=== PATIENT | male | born 1980 | race African-American/Black ===

== ENCOUNTER 2016-04-14 13:53 | Emergency (ER) | payer MEDICAID ==
--- NOTE | 2016-04-14 14:23 | ED Physician Chart ---
Chief Complaint/HPI - Patient Information Date Seen:: 04/15/16 Time Seen:: 14:20 Chief Complaint:: ABD PAIN SINCE 0830 HRS History of Present Illness:: 35-year-old male presents with onset of mid to lower abdominal pain that started at 830 this morning. The onset was relatively acute and accompanied by nausea without any vomiting or diarrhea. Patient rated the severity of the pain is a 7/10 when it was at its worst and described it as sharp and crampy. The patient localizes the pain to just below the umbilicus was some radiation deeper into the abdomen and towards the back. The pain is aggravated by movements and walking and made better by laying still. Patient has no prior similar episodes of abdominal pain. Patient has had no surgical interventions involving the abdomen or G.I. system. Allergies:: Allergies Allergy/AdvReac Type Severity Reaction Status Date / Time No Known Allergies Allergy Verified 04/14/16 14:08 Vitals:: Vital Signs - 8 hr 04/14/16 14:09 Temp 97.8 F HR 66 RR 16 BP 140/89 O2 Sat % 98 Review of Systems - Review of Systems General/Constitutional: No fever, No chills, No weight loss, No weakness, No diaphoresis, No edema, Loss of appetite Skin: No skin lesions, No rash, No bruising Head: No headache, No light-headedness Eyes: No loss of vision, No diplopia ENT: No earache, No nasal drainage, No sore throat Neck: No neck pain, No swelling, No thyromegaly, No stiffness Cardio Vascular: No chest pain, No palpitations, No edema Pulmonary: No SOB, No cough, No sputum, No wheezing GI: Nausea, No vomiting, No diarrhea, Pain, No constipation, No hematemesis G/U: No dysuria, No frequency, No hematuria, No nacturia Musculoskeletal: Bone or joint pain, No back pain, No muscle pain Psychiatric: No prior psych history, No depression, No suicidal ideation Hematopoietic: No bruising, No lymphadenopathy Allergic/Immuno: No urticaria, No angioedema Neurological: No syncope, No focal symptoms, No weakness, No paresthesia, No headache, No seizure, No dizziness, No confusion, No vertigo Past Medical History - Past Medical History Past Medical History: No significant medical hx Family History: None Social History: Non Smoker (Social use of alcohol.), No Drug Use ( Or patient was accompanied by his fiance.) Surgical History: None Psychiatricy History: None ( is the person it was sort) Family Medical History - Family Member Daughter History Unknown: Yes Other Medical History: pt doesnt have a daughter Physical Exam - Physical Examination General/Constitutional: Well-developed, well-nourished, Alert, GCS 15, Non- toxic appearing, Ambulatory Other Gen/Cons comments:: mild to moderate distress from the complained of the [place] pain. Head: Atraumatic Eyes: Lids, conjuctiva normal, PERRL, EOMI Other Eyes comments:: No jaundice of the sclera. Skin: No skin lesions, No ecchymosis, Well hydrated, No lymphadenopathy ENMT: External ears, nose nl, Nasal exam nl, Lips, teeth, gums nl, Oropharynx nl , Tonsils nl Neck: Nontender, No JVD, No nuchal rigidity, No mass Respiratory: Nl effort/Exclusion, Clear to Auscultation, No Wheeze/Rhonchi/Rales Cardio Vascular: RRR, No murmur, gallop, rubs, NL S1 S2 Other Cardio Vascular comments:: good pulses in all four extremities. Other GI comments:: The abdomen is flat and nondistended. No surgical scars are present. Bowel sounds are normal throughout the abdomen. On palpation there was mild tenderness in both the suprapubic and the right lower quadrant regions. The patient had tenderness to percussion in the right lower quadrant. Assistant Brand Manager sign was negative but the psoasis sign was clearly positive. no hernias present. : No CVA tenderness, NL external genitalia, No discharge Other comments:: no testicular tenderness or masses. No urethral discharge. Extremities: No tenderness or effusion, Full ROM, normal strength in all extremities, No edema Neuro/Psych: Alert/oriented, DTR's symmetric, Normal sensory exam, Normal motor strength, Judgement/insight normal, Mood normal, Normal gait Misc: Normal back, No paraspinal tenderness Other Misc comments:: NO tenderness on palpation over the thoracic or Lumbar spine. Labs/Radiology/EKG Results - Lab Results Results: Laboratory Tests 04/14/16 04/14/16 16:00 16:00 WBC 5.6 RBC 5.19 Hgb 14.4 Hct 41.3 MCV 79.5 L MCH 27.7 MCHC Differential 34.9 RDW 14.0 Plt Count 225 MPV 10.7 Neutrophils % 56.3 Lymphocytes % 33.8 Monocytes % 5.8 Eosinophils % 1.9 Basophils % 2.2 H Sodium 134 L Potassium 3.7 Chloride 103 Carbon Dioxide 27.4 Anion Gap 7.3 BUN 16 Creatinine 1.2 Est GFR ( Amer) > 60.0 Est GFR (Non-Af Amer) > 60.0 BUN/Creatinine Ratio 13.3 Glucose [address] scan of the abdomen was reported as no evidence of active disease as read by radiology. CBC shows no leukocytosis or anemia. Renal function studies were all within normal parameters. Assessment - Assessment General Assessment: CASE SUMMARY: this 35-year-old male presents with onset of abdominal pain earlier this a.m. He localizes the pain to just below the umbilicus with equivocal radiation to parts of the back. The pain is made worse by movement and walking and relieved by remaining still. The patient rates the severity of the pain as a 7/10 and describes the pain is cramping and sharp. Pain is accompanied by nausea with no vomiting or diarrhea. Patient has no prior episodes of similar pain. On physical examination there was tenderness and rebound to percussion in the right lower quadrant. No masses were appreciated. Assistant Brand Manager sign was negative and the psoas sign was positive. Laboratory studies showed a lack of leukocytosis or anemia. CT scan of the abdomen was negative for any acute inflammatory or pathologic process. The patient's symptoms were addressed with IV normal saline, Zofran and morphine. Patient was feeling significantly better at the time of discharge. He was advised to return to the emergency department for any significant worsening of his symptoms or pain. MDM DDX for acute RLQ Abd. pain: LOW RISK for Acute appendicitis based on negative CT scan of the abdomen. NOT Mesenteric ischemia/thrombosis based on the patient's history, physical examination and laboratory studies. NOT AAA Based on the patient's history, physical examination and negative CT scan of the abdomen. NOT Acute Cholecystitis Based on the patient's history, physical examination and negative CT scan of the abdomen. ED Septic Shock - . Is Septic Shock (SBP<90, OR Lactate>4 mmol\L) present?: No - <6hrs of presentation: Vital Signs: Vital Signs - 8 hr 04/14/16 14:09 Temp 97.8 F HR 66 RR 16 BP 140/89 O2 Sat % 98 Reassessment (Disposition) - Reassessment Reassessment Condition:: Improved - Diagnosis Diagnosis:: ABDOMINAL PAIN, unclear etiology. - Aftercare/Follow up Instructions Aftercare/Follow-Up Instructions:: Counseled pt regarding lab results/diagnosis & need follow up - Patient Disposition Discharge/Transfer:: Home ED Discharge Plan - Patient Disposition Admit/Discharge/Transfer: PT DISCHARGED HOME Condition at Disposition: Improved Instructions: Abdominal Pain, [id number]
[2016-04-14] MEDS ORDERED: IOHEXOL 300MG/ML 100 ML VIAL PO ONE (15:39)
[2016-04-14] MEDS ORDERED: Diatrizoate Meglumine/Diatri 30 mL Sol PO ONE (15:39)
[2016-04-14 16:11] LABS: % BASOPHILS 2.2 % (0.0-2.0); % EOSINOPHILS 1.9 % (0.0-5.0); % LYMPHOCYTES 33.8 % (20.0-50.0); % MONOCYTES 5.8 % (2.0-10.0); % NEUTROPHILS 56.3 % (40.0-80.0); HEMATOCRIT 41.3 % (39.0-49.0); HEMOGLOBIN 14.4 gm/dL (13.2-17.3); MEAN CELL VOLUME 79.5 fl (80-99); MEAN CORPUSCULAR HEMOGLOBIN 27.7 pg (26.0-30.0); MEAN CORPUSCULAR HGB CONC 34.9 pg (28.0-36.0); MEAN PLATELET VOLUME 10.7 fl; NEUTROPHILE ABSOLUTE 3.2 Th/cmm (1.8-8.0); PLATELET COUNT 225 Th/cmm (150-400); RED BLOOD COUNT 5.19 Mil/cmm (4.30-5.70); WHITE BLOOD COUNT 5.6 Th/cmm (4.8-10.8)
[2016-04-14 16:50] LABS: ANION GAP 7.3 (7.0-16.0); BUN - UREA NITROGEN 16 mg/dL (7-25); BUN/CREATININE RATIO 13.3; CARBON DIOXIDE 27.4 mEq/L (21.0-31.0); CHLORIDE 103 mEq/L (98-107); CREATININE - SERUM 1.2 mg/dL (0.7-1.3); GLUCOSE 87 mg/dL (70-105); POTASSIUM SERUM 3.7 mEq/L (3.5-5.1); SODIUM SERUM 134 mEq/L (136-145)
--- NOTE | 2016-04-15 10:34 | Diagnostic Imaging Report ---
CT abdomen and pelvis with intravenous contrast Indication: Right lower quadrant pain Comparison: None, Technique: Axial images were obtained from the lung bases to the bilateral proximal femurs with IV contrast. Coronal reconstructions were made. total DLP: [id number], [id number] FINDINGS: Hypoventilatory changes of the lung bases are noted. No evidence of focal hepatic, splenic, pancreatic, or adrenal lesions. No evidence of hydronephrosis or focal renal lesions. Prostate gland calcifications are noted. No evidence of bowel obstruction. Fluid and air-filled appendix is noted without evidence of acute appendicitis. No free air or free fluid. The osseous structures demonstrate no acute abnormalities. Subchondral cystic changes of the bilateral lateral femoral head/neck junctions are noted. IMPRESSION: No evidence of bowel obstruction No evidence of acute appendicitis. No evidence of free fluid. No evidence of hydronephrosis.
== END 2016-04-14 18:54 | disposition home or self-care (01) ==
LOC: ER 13:53
DX: R10.31 Right lower quadrant pain (principal)
CPT/HCPCS: 99285; 74177; 96374; 36415; 85025; 80048; J1885; Q9967

== ENCOUNTER 2016-04-18 23:49 | Emergency (ER) | payer MEDICAID ==
--- NOTE | 2016-04-19 00:25 | ED Physician Chart ---
Chief Complaint/HPI - Patient Information Date Seen:: 04/18/16 Time Seen:: 23:55 Chief Complaint:: pelvic pain History of Present Illness:: 35-year-old male with acute, constant, aching and sharp, nonradiating, moderate to severe, suprapubic/pelvic pain 5 days. Has associated pain when trying to stop urinating. Denies nausea, vomiting, anorexia, fevers, gross blood in stool , gross hematuria. Was seen 5 days ago here and had CT of the abdomen pelvis with by mouth and IV contrast which was unremarkable for any acute findings. Also had CBC and CMP which were also unremarkable for acute findings. Allergies:: Allergies Allergy/AdvReac Type Severity Reaction Status Date / Time No Known Allergies Allergy Verified 04/18/16 23:57 Vitals:: Vital Signs - 8 hr 04/18/16 23:55 Temp 97.2 F HR 58 RR 16 BP 138/65 O2 Sat % 99 Historian:: Patient Review:: Nurse's Note Reviewed Review of Systems - Review of Systems Other: Complete system review otherwise unremarkable except as noted in HPI. Past Medical History - Past Medical History Past Medical History: No significant medical hx Family History: None Social History: Non Smoker, No Alcohol, No Drug Use Surgical History: None Psychiatricy History: None Medication: None Family Medical History - Family Member Daughter History Unknown: Yes Grandmother Living Status: Still Living Hx Family Diabetes: Yes Physical Exam - Physical Examination Other:: INITIAL VITAL SIGNS: Reviewed by me GENERAL: Alert and interactive. No acute distress HEAD: Head is normocephalic and atraumatic EYES: EOMI. . No scleral icterus. No conjunctival injection ENT: Moist mucous membranes. NECK: Supple. No masses. Full range of motion RESPIRATORY: No tachypnea. Clear breath sounds bilaterally. No wheezing, rales, or rhonchi CV: Regular rate and rhythm. No murmurs, rubs, or gallops ABDOMEN: Soft, non-distended, as tenderness directly over the pubic symphysis area. No guarding. No rebound. No masses. No hernia. EXTREMITIES: No deformity. No cyanosis. No edema. SKIN: Warm and dry. No obvious rashes. NEUROLOGIC: Alert and oriented. Face is symmetric. Speech is normal. Moves all extremities equally. Motor and sensory distally intact. Labs/Radiology/EKG Results - Radiology Results Results: Ultrasound abdomen and prostate No acute findings ED Septic Shock - . Is Septic Shock (SBP<90, OR Lactate>4 mmol\L) present?: No - <6hrs of presentation: Vital Signs: Vital Signs - 8 hr 04/18/16 23:55 Temp 97.2 F HR 58 RR 16 BP 138/65 O2 Sat % 99 Reassessment (Disposition) - Reassessment Reassessment:: The patient's blood pressure was elevated (>120/80) but appears stable without evidence of hypertensive emergency or urgency. The patient was counseled about the risks hypertension urged to pursue outpatient monitoring and therapy within a week with her primary care physician. Patient has unremarkable workup on ultrasound. He did have CT of the abdomen pelvis with by mouth and IV contrast was performed on 04/14/2016. I reviewed the CT in detail. I do note some sclerosing of the left pubis symphysis. The exam was read as negative. Blood work was also negative at that time. Else is today is also unremarkable. He appears to have osteitis pubis. He does work out. We've given ibuprofen 600 mg by mouth here in the ER. Had some relief. We'll provide prescription for ibuprofen. Recommended follow-up with PCP and possible referral to MRI for further assessment. Reassessment Condition:: Improved - Diagnosis Diagnosis:: Osteitis pubis, acute, first visit Elevated blood pressure without the diagnosis of hypertension - Aftercare/Follow up Instructions Aftercare/Follow-Up Instructions:: Counseled pt regarding lab results/diagnosis & need follow up, Refer to Discharge Instructions Medication Prescribed:: Ibuprofen - Patient Disposition Discharge/Transfer:: Home Time:: 01:30 Condition at Disposition:: Improved ED Discharge Plan - Patient Disposition Admit/Discharge/Transfer: PT DISCHARGED HOME Condition at Disposition: Improved Instructions: Pelvic Pain, Male
[2016-04-19 01:03] LABS: URINE BILIRUBIN NEGATIVE (NEGATIVE); URINE COLOR YELLOW; URINE GLUCOSE (UA) NEGATIVE (NEGATIVE); URINE KETONE NEGATIVE (NEGATIVE)
[2016-04-19 01:04] LABS: URINE BACTERIA NONE SEEN /hpf (NONE SEEN); URINE BLOOD NEGATIVE (NEGATIVE); URINE EPITHELIAL CELLS OCCASIONAL /lpf (FEW); URINE PROTEIN NEGATIVE (NEGATIVE); URINE RBC NONE SEEN /hpf (0-5); URINE UROBILINOGEN 0.2 E.U./dL (0.2 - 1.0); URINE WBC NONE SEEN /hpf (0-5)
--- NOTE | 2016-04-20 12:28 | Diagnostic Imaging Report ---
Pelvic ultrasound HISTORY: Pain The urinary bladder exhibits a normal contour. No intraluminal abnormalities are seen. There is partial visualization of the prostate gland which measures approximately 3.3 x 3.3 x 4.0 cm. Several small echogenic foci consistent calcifications noted. No other abnormal masses or fluid collections seen within the pelvis. IMPRESSION: 1. Limited exam with no definite abnormalities. Detailed assessment of the prostate gland cannot be performed with transabdominal sonographic technique.
== END 2016-04-19 02:00 | disposition home or self-care (01) ==
LOC: ER 23:49
DX: M86.18 Other acute osteomyelitis, other site (principal); R03.0 Elevated blood-pressure reading, without diagnosis of hypertension
CPT/HCPCS: 76705-TC; 76856-TC; 81001-TC